=== PATIENT | female | born 2000 | race Caucasian/White ===

== ENCOUNTER 2018-05-08 21:10 | Emergency (ER) | payer OTHER ==
[2018-05-08 21:17] VITALS: BP 149/11
--- NOTE | 2018-05-08 21:37 | EDPHY ---
H & P Stated Complaint: left ear pain for 3 hours Time Seen by Provider: 05/08/18 21:36 HPI/ROS: HPI: This is a 17-year-old female who presents with Chief Complaint: Left ear pain for 3 hr Location: Left ear Quality: Pain Duration: 3 hr Signs and Symptoms: no fever, no nausea, no vomiting, no diarrhea, no urinary symptoms, no chest pain, no shortness of breath, no wheezing, no cough, no sore throat, no neck stiffness, no joint pain, no swollen glands, no ear pain, no rash Timing: Acute Severity: Moderate to severe Context: Patient is a student at [employer], presents accompanied by mother with sudden onset of left ear pain that is constant, moderate and nonradiating for the last 3 hr. Patient over the last 4 the 6 days has had a runny nose and cold-like symptoms. Patient has lupus and is immunocompromised. She is unable to take NSAIDs due to kidney disease. Denies any fever, dizziness, neck stiffness, sore throat. Modifying Factors: Tylenol 650 mg 1 hr prior to arrival Comment: ROS: A comprehensive 10 system review of systems is otherwise negative aside from elements mentioned in the history of present illness. MEDICAL/SURGICAL/SOCIAL HISTORY: Medical history: lupus, kidney disease Surgical history: Kidney biopsy Social history: Never smoked. Family history noncontributory. CONSTITUTIONAL: Nontoxic-appearing, teenage white female, awake and alert, no obvious distress HEENT: Atraumatic and normocephalic, PERRL, EOMI. Nares patent; no rhinorrhea; no nasal mucosal edema. Left TM is bright red; injected; bulging. Right Tympanic membrane clear. Oropharynx clear, no tonsillar hypertrophy, no exudate and moist pink mucosa. Airway patent. No lymphadenopathy. No meningismus. Cardiovascular: Normal S1/S2, regular rate, regular rhythm, without murmur rub or gallop. PULMONARY/CHEST: Symmetrical and nontender. Clear to auscultation bilaterally. Good air movement. No accessory muscle usage. ABDOMEN: Soft, nondistended, nontender, no rebound, no guarding, no peritoneal signs, no masses or organomegaly. No CVAT. EXTREMITIES: 2/2 pulses, strength 5/5, no deformities, no clubbing, no cyanosis or edema. NEUROLOGICAL: no focal neuro deficits. GCS 15. SKIN: Warm and dry, no erythema. no rash. Good capillary refill. Source: Patient, Family (Mother) Exam Limitations: No limitations - Personal History LMP (Females 10-55): 1-7 Days Ago Current Tetanus/Diphtheria Vaccine: Yes Current Tetanus Diphtheria and Acellular Pertussis (TDAP): Yes - Medical/Surgical History Hx Asthma: No Hx Chronic Respiratory Disease: No Hx Diabetes: No Hx Cardiac Disease: No Hx Renal Disease: Yes Hx Cirrhosis: No Hx Alcoholism: No Hx HIV/AIDS: No Hx Splenectomy or Spleen Trauma: No Other PMH: lupus, kidney biopsy, kidney disease - Social History Smoking Status: Never smoked Constitutional: Initial Vital Signs Temperature (C) 37.1 C 05/08/18 21:14 Heart Rate 83 05/08/18 21:14 Respiratory Rate 16 05/08/18 21:14 Blood Pressure 149/11 H 05/08/18 21:14 O2 Sat (%) 98 05/08/18 21:14 O2 Delivery Mode Room Air Allergies/Adverse Reactions: No Known Allergies Allergy (Unverified 05/08/18 21:17) Home Medications: Medication Instructions Recorded Amoxicillin/Clavulanate Pot 875 mg PO BID #14 tab 05/08/18 [Augmentin 875 MG TAB (*)] Cellcept 05/08/18 Lisinopril 05/08/18 PlatINOL 05/08/18 predniSONE 05/08/18 Medical Decision Making ED Course/Re-evaluation: Vital signs reviewed and stable upon arrival. Patient is immunocompromised and will be treated with Augmentin for left otitis media. I did give her Percocet x1 in the emergency room with adequate pain relief. No signs of meningitis/dehydration/TM perforation School note provided per request. This patient was seen under the supervision of my secondary supervising physician. I evaluated care for this patient independently. Discussed this patient with Dr. Baumann who did not see the patient. Differential Diagnosis: Differential diagnosis includes but is not limited to sinusitis, otitis media, tympanic membrane rupture, eustachian tube dysfunction, dental abscess. Departure - Departure Disposition: Home, Routine, Self-Care Clinical Impression: Left acute otitis media Condition: Good Instructions: Ear Infection (ED) Additional Instructions: Take Tylenol 650 mg every 4 hours as needed for pain/fever. Take Augmentin twice daily as prescribed. Do Not skip a dose. Follow up with student [facility] clinic in 3-4 days if no improvement. Referrals: [facility],. [Clinic] - As per Instructions Stand Alone Forms: School Excuse Prescriptions: Amoxicillin/Clavulanate Pot [Augmentin 875 MG TAB (*)] 875 mg PO BID #14 tab
[2018-05-08] MEDS ORDERED: AMOXICILLIN/CLAVULANATE POT 875/125 MG TAB PO ONE (21:42)
[2018-05-08] MEDS ORDERED: OXYCODONE/APAP 5/325 TAB PO ONE (21:42)
== END 2018-05-08 21:57 | disposition home or self-care (01) ==
DX: H66.92 Otitis media, unspecified, left ear (principal); D84.9 Immunodeficiency, unspecified; M32.9 Systemic lupus erythematosus, unspecified; N18.9 Chronic kidney disease, unspecified